=== PATIENT | male | born 1950 | race Caucasian/White ===

== ENCOUNTER 2024-05-22 12:01 | Emergency (ER) | payer OTHER ==
[~2024-05-22] VITALS: Ht 182.8 cm; Wt 124.7 kg
[~2024-05-22 12:01] MED LIST: ALDACTONE25 MG PO; DIOVAN160 M2 PO; FUROSEMIDE40 MG PO; JARDIANCE10 MG PO; METOPROLOL SUCC50 M1 PO; XARE20MG PO
[2024-05-22] MEDS ORDERED: IOHEXOL 300 MG/ML 100 ML VIAL IV ONE (12:40)
[2024-05-22 12:59] LABS: BASO % 0.2 % (0.0-1.0); EOS # 0.1 10*3/uL (0.0-0.4); EOS % 0.6 % (1.0-4.0); HEMATOCRIT 29.3 % (42.0-52.0); LYMPH # 0.4 10*3/uL (1.3-4.4); LYMPH % 4.2 % (27.0-41.0); MEAN CELL VOLUME 72.7 fl (80.0-94.0); MEAN CORPUSCULAR HGB 19.6 pg (27.0-31.0); MONO # 0.9 10*3/uL (0.1-1.0); MONO % 8.8 % (3.0-9.0); NEUT # 8.7 10*3/uL (2.3-7.9); NEUT % 85.8 % (47.0-73.0); PLATELET COUNT AUTOMATED 323 10*3/uL (130-400); RED BLOOD COUNT 4.03 10*6/uL (4.50-5.90); RED CELL DISTRI WIDTH 18.9 % (0-14.5); WHITE BLOOD COUNT 10.1 10*3/uL (4.8-10.8)
[2024-05-22] MEDS ORDERED: fentaNYL CITRATE 100 MCG/2 ML VIAL IV ONE ×3 (13:05→17:00)
[2024-05-22 13:20] LABS: POTASSIUM 3.6 mmol/L (3.4-5.1); TOTAL PROTEIN 6.4 gm/dL (6.0-8.0)
== END 2024-05-22 19:33 | disposition short-term general hospital (02) ==
LOC: ED 12:01
PROVIDERS: Nurse Practitioner Family
DX: C18.9 Malignant neoplasm of colon, unspecified (principal); D64.9 Anemia, unspecified; K56.609 Unspecified intestinal obstruction, unspecified as to partial versus complete obstruction; Z87.891 Personal history of nicotine dependence

== ENCOUNTER → 2024-07-07 | Outpatient (CLI) | payer OTHER, MEDICARE ==
[2024-07-07 18:11] LABS: BUN 19 mg/dl (9-23); CHLORIDE 106 mmol/L (98-107); POTASSIUM 4.4 mmol/L (3.4-5.1)
== END | disposition home or self-care (01) ==
LOC: LAB 17:22
PROVIDERS: ATTEND Surgery Surgical Oncology
DX: R79.89 Other specified abnormal findings of blood chemistry (principal)